=== PATIENT | female | born 1990 | race Caucasian/White ===

== ENCOUNTER 2025-02-27 13:39 | Emergency (ER) | payer OTHER ==
[~2025-02-27] VITALS: Ht 152.4 cm; Wt 96.8 kg
[2025-02-27 14:30] LABS: BASOPHILS 0.5 % (0.1-1.2); EOSINOPHILS 1.5 % (0.7-5.8); LYMPHOCYTES 20.9 % (19.3-51.7); MCH 30.5 PG (25.6-32.2); MCHC 34.2 g/dL (32.2-35.5); MCV 89.0 fL (79.4-94.8); MONOCYTES 8.3 % (4.7-12.5); NEUTROPHILS 68.6 % (34.0-71.1); RBC 4.92 M/uL (3.93-5.22)
[2025-02-27] MEDS ORDERED: BUSPIRONE HCL5 MG PO (14:44)
[2025-02-27] MEDS ORDERED: IPRAT-ALBUT 0.5-3 ML INH (14:44)
[2025-02-27] MEDS ORDERED: TRIAMCINOLONE A15 G1 TOP (14:45)
[2025-02-27 14:57] LABS: ALT (SGPT) 39 U/L (14-59); AST (SGOT) 19 U/L (15-37); GLOMERULAR FILTRATION RATE,EST 104 mL/min (>60); PROTEIN, TOTAL 7.7 g/dL (6.4-8.2); UREA NITROGEN 6 mg/dL (7-18)
[2025-02-27] MEDS ORDERED: PEPCID20 MG PO (17:37)
[2025-02-27] MEDS ORDERED: OMEPRAZOLE20 MG PO (17:37)
[2025-02-27] MEDS ORDERED: ONDANSETRON ODT4 MG PO (17:37)
[2025-02-27] MEDS ORDERED: PANTOPRAZOLE SODIUM 40 MG/10 ML VIAL IV ONE (17:45)
[2025-02-27] MEDS ORDERED: FAMOTIDINE 20 MG/ 2 ML VIAL IV ONE (17:45)
[2025-02-27 18:24] VITALS: BP 132/85
--- OUTSIDE RECORDS SUMMARY | 2025-02-27 18:26 | XMS ---
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 E.D. VISIT COUNT (12 MO.) 3 Zeenat Rodrigues ([facility]) [address] [facility] TOTAL 4 NOTE: Visits indicate total known visits. ED/UCC VISIT TRACKING (12 MO.) 02/27/2025 13:40 RICKIE Keller TYPE: Emergency COMPLAINT: - CHEST PAIN 02/01/2025 17:22 Zeenat ZARAGOZA ([facility]) TYPE: Emergency DIAGNOSES: - Sprain of medial collateral ligament of right knee, initial encounter - Sprain of unspecified collateral ligament of right knee, initial encounter - Knee Pain 11/22/2024 12:41 [place]enat [place]CGARRY [place] ([facility]) TYPE: Emergency DIAGNOSES: - Generalized anxiety disorder - Other chest pain - Dizziness - Light headed 07/28/2024 08:47 Zeenat MCGARRY [place] ([facility]) TYPE: Emergency DIAGNOSES: - Other specified respiratory disorders - Other viral agents as the cause of diseases classified elsewhere - Unspecified asthma, uncomplicated - cough, shortness of breath - Wheezing INPATIENT VISIT TRACKING (12 MO.) No inpatient visits to display in this time frame [email or web address]
--- NOTE | 2025-02-28 10:09 | EKG ---
[facility] [address] [place], [place] [address] Signed Normal sinus rhythm Normal ECG No previous ECGs available Confirmed by Arley Saucedo DO ([id number]) on 02/28/2025 10:09:28 AM Electronically Signed By: ARLEY SAUCEDO DO 02/28/25 1009 PATIENT NAME: JOANN CORMIER Electrocardiogram DATE OF : 89 PHYSICIAN: ARLEY SAUCEDO DO REPORT #: [id number] REPORT IS CONFIDENTIAL AND NOT TO BE RELEASED WITHOUT AUTHORIZATION
== END 2025-02-27 18:25 | disposition home or self-care (01) ==
LOC: ED 13:39
PROVIDERS: Emergency Medicine
DX: R07.89 Other chest pain (principal); Z88.0 Allergy status to penicillin; Z88.5 Allergy status to narcotic agent; Z88.8 Allergy status to other drugs, medicaments and biological substances; Z79.899 Other long term (current) drug therapy
CPT/HCPCS: 36415; 71045; 80053; 83735; 84484; 85025; 93005; 93010; 96374; 96375; 99285-25; J2405; J2470

== ENCOUNTER 2025-03-01 09:37 | Emergency (ER) | payer OTHER ==
[~2025-03-01] VITALS: Ht 152.4 cm; Wt 97.3 kg
[~2025-03-01 09:37] MED LIST: BUSPIRONE HCL5 MG PO; IPRAT-ALBUT 0.5-3 ML INH; OMEPRAZOLE20 MG PO; ONDANSETRON ODT4 MG PO; PEPCID20 MG PO; TRIAMCINOLONE A15 G1 TOP
--- OUTSIDE RECORDS SUMMARY | 2025-03-01 09:41 | XMS ---
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 Dentist: Assistant Teaching Professor Current Dental Clinic PHONE: [phone] ZEENAT MOY [facility]/Center: [facility] PHONE: [phone] CARMEL [facility] Current PHONE: Unknown Kianna has no Care Guidelines for this patient. E.D. VISIT COUNT (12 MO.) 3 Zeenat Ronrachel TanvirNery ([facility]) 2 RICKIE Aaron TOTAL 5 NOTE: Visits indicate total known visits. 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 02/01/2025 17:22 Zeenat MCGARRY [place] ([facility]) TYPE: Emergency DIAGNOSES: - Sprain of medial collateral ligament of right knee, initial encounter - Sprain of unspecified collateral ligament of right knee, initial encounter - Knee Pain 11/22/2024 12:41 Zeenat MCGARRY [place] ([facility]) TYPE: Emergency DIAGNOSES: - Generalized anxiety disorder - Other chest pain - Dizziness - Light headed 07/28/2024 08:47 Zeenat MCGARRY [place] ([facility]) TYPE: Emergency DIAGNOSES: - Other specified respiratory disorders - Other viral agents as the cause of diseases classified elsewhere - Unspecified asthma, uncomplicated - cough, shortness of breath - Wheezing INPATIENT VISIT TRACKING (12 MO.) No inpatient visits to display in this time frame [email or web address]
[2025-03-01 10:03] LABS: BASOPHILS 0.6 % (0.1-1.2); EOSINOPHILS 4.2 % (0.7-5.8); LYMPHOCYTES 30.6 % (19.3-51.7); MCH 30.7 PG (25.6-32.2); MCHC 34.4 g/dL (32.2-35.5); MCV 89.4 fL (79.4-94.8); MONOCYTES 10.0 % (4.7-12.5); NEUTROPHILS 54.3 % (34.0-71.1); RBC 4.62 M/uL (3.93-5.22)
[2025-03-01 10:40] LABS: ALT (SGPT) 38 U/L (14-59); AST (SGOT) 18 U/L (15-37); GLOMERULAR FILTRATION RATE,EST 100 mL/min (>60); PROTEIN, TOTAL 7.1 g/dL (6.4-8.2); UREA NITROGEN 7 mg/dL (7-18)
[2025-03-01] MEDS ORDERED: METOCLOPRAMIDE HCL 10 MG/2 ML SDV IV ONE (12:45)
[2025-03-01] MEDS ORDERED: PREDNISONE20 MG PO (12:52)
[2025-03-01] MEDS ORDERED: HYDROCODON-ACE1 EA10 PO (12:52)
[2025-03-01 13:50] VITALS: BP 128/84
--- NOTE | 2025-03-01 20:40 | EKG ---
[facility] [address] [place] [address] Signed Normal sinus rhythm Nonspecific ST abnormality Abnormal ECG When compared with ECG of 27-FEB-2025 13:44, No significant change was found Confirmed by PATRICK PILLAI MD ([id number]) on 03/01/2025 8:40:16 PM Electronically Signed By: PATRICK PILLAI 03/01/252039 PATIENT NAME: JOANN CORMIER Electrocardiogram DATE OF : 89 PHYSICIAN: PATRICK PILLAI REPORT #: [id number] REPORT IS CONFIDENTIAL AND NOT TO BE RELEASED WITHOUT AUTHORIZATION
== END 2025-03-01 13:50 | disposition home or self-care (01) ==
LOC: ED 09:37
PROVIDERS: Emergency Medicine
DX: R07.89 Other chest pain (principal); J45.909 Unspecified asthma, uncomplicated; Z86.73 Personal history of transient ischemic attack (TIA), and cerebral infarction without residual deficits; Z88.0 Allergy status to penicillin; Z91.048 Other nonmedicinal substance allergy status; Z88.5 Allergy status to narcotic agent; Z79.899 Other long term (current) drug therapy
CPT/HCPCS: 36415; 71260; 80053; 83690; 84484; 84703; 85025; 85060; 93005; 93010; 96374; 99285-25; J2765; Q9967